=== PATIENT | male | born 1945 | race Caucasian/White ===

== ENCOUNTER 2018-02-11 13:30 | Emergency (ER) | payer MEDICARE ==
[~2018-02-11] VITALS: Ht 170.1 cm; Wt 100.7 kg
--- NOTE | ~2018-02-11 | EKG ---
[place], [place] ELECTROCARDIOGRAM REPORT NAME: ROSELIA GIBSON UNIT #: [id number] ROOM: DOCTOR: NGUYỄN DRAFT REPORT BIRTHDATE: [birth year] [facility] Test Date: 2018-02-11 Test Time: 13:59:39 Pat Name: ROSELIA GIBSON Department: ER Room: Gender: Guest Experience Specialist: JAQUELIN : 1945 Requested By: VANESA OSBORN Order Number: [id number] Reading MD: Jer Thomas MD Measurements Intervals [place] Rate: 110 P: 28 MD: 145 QRS: -17 QRSD: 92 T: 56 QT: 312 QTc: 423 Interpretive Statements Sinus tachycardia Borderline left axis deviation Low voltage, precordial leads Consider anterior infarct Minimal ST elevation, inferior leads Electronically Signed On 02-14-2018 9:08:23 PDT by Jer Thomas MD CM:EKGRPT:ELECTROCARDIOGRAM REPORT [id number] VANESA LEDESMA DRAFT REPORT VANESA OSBORN DO
[~2018-02-11 13:30] MED LIST: PREDNISONE10 MG PO; SKIN TREATMENT225 GM TP; TOBREX0.3% OP; UREA 40% NAIL1 EACH TP; VENTOLIN H0.09 MG/AC INH; VIAGRA100 MG PO; ZESTRIL40 MG PO
[2018-02-11] MEDS ORDERED: LIPITOR20 MG PO (13:48)
[2018-02-11] MEDS ORDERED: PLAVIX75 M1 PO (13:50)
[2018-02-11 14:49] LABS: BASO % 0.4 % (0.0-1.0); EOS # 0.2 10*3/uL (0.0-0.4); HEMATOCRIT 44.5 % (42.0-52.0); HEMOGLOBIN 14.7 g/dl (14.0-18.0); LYMPH # 1.3 10*3/uL (1.3-4.4); LYMPH % 16.5 % (27.0-41.0); MEAN CELL VOLUME 93.3 fl (80.0-94.0); MEAN CORPUSCULAR HGB 30.8 pg (27.0-31.0); MEAN PLATELET VOLUME 11.6 fl (9.6-12.3); MONO # 0.9 10*3/uL (0.1-1.0); MONO % 10.7 % (3.0-9.0); NEUT # 5.5 10*3/uL (2.3-7.9); NEUT % 68.9 % (47.0-73.0); PLATELET COUNT AUTOMATED 130 10*3/uL (130-400); RED BLOOD COUNT 4.77 10*6/uL (4.50-5.90); RED CELL DISTRI WIDTH 13.6 % (0-14.5)
[2018-02-11 14:57] LABS: ACT PARTIAL THROMBO TIME 23.5 SECONDS (20.8-31.5)
[2018-02-11 15:13] LABS: ALBUMIN 3.1 gm/dl (3.1-4.5); ALKALINE PHOSPHATASE 97 U/L (45-117); BUN 15 mg/dl (7-24); CHLORIDE 105 mmol/L (98-107); CREATININE 0.89 mg/dL (0.70-1.30); LIPASE 146 U/L (73-393); SGOT/AST 19 IU/L (3-35); SGPT/ALT 34 U/L (12-78); SODIUM 139 mmol/L (136-145)
[2018-02-11 15:14] LABS: TROPONIN I < 0.015 ng/ml (<0.045)
== END 2018-02-11 18:45 | disposition home or self-care (01) ==
LOC: ED 13:30
PROVIDERS: Emergency Medicine
DX: R00.0 Tachycardia, unspecified (principal); J44.9 Chronic obstructive pulmonary disease, unspecified; F17.200 Nicotine dependence, unspecified, uncomplicated; Z79.899 Other long term (current) drug therapy; Z88.0 Allergy status to penicillin

== ENCOUNTER → 2025-02-16 | Outpatient (CLI) | payer OTHER ==
[~2025-02-16] MED LIST changes: +BREZTRI AEROS10.7 GM INH; +CARDIZEM CD240 M1 PO; +DICLOFENAC SODI50 GM T; +DILTIAZEM CD240 MG PO; +ELIQUIS5 M1 PO; +LIPITOR20 MG PO; +LIPITOR80 MG PO; +METFORMIN HYDR500 MG PO; +METOPROLOL SUCC25 M2 PO; +NEURONTIN600 MG PO; +PLAVIX75 M1 PO; +PREDNISONE50 MG PO; +TOPROL XL25 MG PO; +VENT7GM INH; +VENTOLIN 02.5 MG/3 M INH
== END | disposition home or self-care (01) ==
LOC: US 09:47
PROVIDERS: ATTEND Nurse Practitioner Family
DX: M79.89 Other specified soft tissue disorders (principal)

== ENCOUNTER 2025-04-10 17:03 | Emergency (ER) | payer OTHER ==
[~2025-04-10] VITALS: Ht 170.1 cm; Wt 100.7 kg
[2025-04-10] MEDS ORDERED: MUPIROCIN 15 GM TUBE T ONE (17:35)
[2025-04-10] MEDS ORDERED: ERYTHROMYCIN 1 GM TUBE OPH ONE (17:50)
== END 2025-04-10 17:44 | disposition home or self-care (01) ==
LOC: ED 17:03
DX: S80.812A Abrasion, left lower leg, initial encounter (principal); I48.91 Unspecified atrial fibrillation; J44.9 Chronic obstructive pulmonary disease, unspecified; E78.5 Hyperlipidemia, unspecified; E11.40 Type 2 diabetes mellitus with diabetic neuropathy, unspecified; Z88.0 Allergy status to penicillin; X58.XXXA Exposure to other specified factors, initial encounter; Y93.89 Activity, other specified; Y92.89 Other specified places as the place of occurrence of the external cause; Y99.8 Other external cause status